=== PATIENT | female | born 1960 | race Caucasian/White ===

== ENCOUNTER → 2022-10-20 | Outpatient (CLI) | payer BC | END | disposition home or self-care (01) | LOC: CT 00:59 | PROVIDERS: ATTEND Specialist | DX: J34.89 Other specified disorders of nose and nasal sinuses (principal); J32.9 Chronic sinusitis, unspecified; G93.89 Other specified disorders of brain ==

== ENCOUNTER → 2022-11-25 | Outpatient (CLI) | payer BC | END | disposition home or self-care (01) | LOC: RAD 14:01 | PROVIDERS: ATTEND Specialist | DX: J32.3 Chronic sphenoidal sinusitis (principal) ==